=== PATIENT | male | born 1995 | race Caucasian/White ===

== ENCOUNTER 2018-01-24 21:33 | Emergency (ER) | payer MEDICAID ==
--- NOTE | 2018-01-24 21:34 | UC ---
Complaint Male HPI - HPI Summary HPI Summary: Pt presents with penile discharge. He tells me that his ex girlfriend was recently diagnosed with gonorrhea. He noticed a white colored discharge from his penis today as well as some burning with urination. Denies fever, chills, SOB, chest pain, abdominal pain, n/v/d/c. - History of Current Complaint Stated Complaint: PERSONAL Time Seen by Provider: 01/24/18 21:34 Hx Obtained From: Patient Onset/Duration: Sudden Onset Timing: Constant Severity Currently: None - Allergies/Home Medications Allergies/Adverse Reactions: Allergies Allergy/AdvReac Type Severity Reaction Status Date / Time cinnamon Allergy Difficulty Verified 01/24/18 21:44 Breathing PMH/Surg Hx/FS Hx/Imm Hx - Additional Past Medical History Additional PMH: None Previously Healthy: Yes - Surgical History Surgical History: None - Family History Known Family History: Positive: None, Respiratory Disease - Social History Occupation: Employed Full-time Lives: With Family Alcohol Use: None Substance Use Type: None Smoking Status (MU): Never Smoked Tobacco Review of Systems Constitutional: Negative Respiratory: Negative Cardiovascular: Negative Gastrointestinal: Negative Genitourinary: Vaginal/Penile Discharge Musculoskeletal: Negative Neurological: Negative Psychological: Negative All Other Systems Reviewed And Are Negative: Yes Physical Exam Triage Information Reviewed: Yes Appearance: Well-Appearing, No Pain Distress, Well-Nourished Vital Signs Reviewed: Yes Neck: Positive: Supple, Nontender, No Lymphadenopathy Respiratory: Positive: Lungs clear, Normal breath sounds, No respiratory distress, No accessory muscle use Cardiovascular: Positive: RRR, No Murmur, Pulses Normal Abdomen Description: Positive: Nontender, No Organomegaly, Soft. Negative: Distended, Guarding Bowel Sounds: Positive: Present Male Genital Exam: Positive: Normal Genitalia, Urethral Discharge - Mild clear discharge, Other - No inguinal LAD. Negative: No Hernia, Epididymal Tenderness , Erythema, Inguinal Tenderness, Lesions, Scrotum Tenderness (R), Scrotum Tenderness (L), Testicular Tenderness (R), Testicular Tenderness (L) Neurological: Positive: Alert Psychological: Positive: Age Appropriate Behavior Skin: Negative: rashes, significant lesion(s) Complaint Male Course/Dx - Course Course Of Treatment: 250mg of ceftriaxone and 1gm of azithromycin given in clinic today. Culture sent for GC/Chla. Will call with results. - Differential Dx/Diagnosis Provider Diagnoses: Gonorrhea Discharge - Sign-Out/Discharge Documenting (check all that apply): Discharge - Discharge Plan Condition: Stable Disposition: HOME Patient Education Materials: Gonorrhea (ED) Referrals: Cynthia Tiwari MD [Medical Doctor] - Additional Instructions: If you develop a fever, shortness of breath, chest pain, new or worsening symptoms - please call your PCP or go to the ED. 1) Please do not have sex or engage in sexual activity for 1 week AFTER your symptoms resolve 2) If you continue to have symptoms or develop new symptoms please call or return to our clinic - Billing Disposition and Condition Condition: STABLE Disposition: HOME
[2018-01-24 21:47] VITALS: BP 123/84
[2018-01-24] MEDS ORDERED: cefTRIAXone VIAL(*) 250 MG VIAL IM ONE (21:47)
[2018-01-24] MEDS ORDERED: Lidocaine 1% MPF* 2 ML VIAL INJ ONE (21:47)
[2018-01-24] MEDS ORDERED: Azithromycin TAB* 250 MG PO ONE (21:48)
== END 2018-01-24 22:15 | disposition home or self-care (01) ==
LOC: UCCORT 21:33
DX: A54.9 Gonococcal infection, unspecified (principal)
CPT/HCPCS: 87491; 87591; 96372; 99212; A9270-GY; G0463; J0696